=== PATIENT | male | born 1980 ===

== ENCOUNTER 2017-09-11 11:39 | Emergency (ER) | payer OTHER ==
--- NOTE | 2017-09-11 11:51 | ED PDOC ---
Arrival/HPI - General Historian: Patient <Hola Aguilar - Last Filed: 09/11/17 15:22> <Rosina Engle - Last Filed: 09/11/17 17:30> - General Chief Complaint: Rib Injury Time Seen by Provider: 09/11/17 11:49 - History of Present Illness Narrative History of Present Illness (Text): 09/11/17 11:51 37 y/o male, no significant pmh, nkda, c/o lt. sided rib pain x 2 days. Pt. stated that he has atraumatic pain on the lt. flank region for the past 2 days, sharp pain, nonradiating, no fever or chills, no coughing no pleuritic pain, no rash, no palpitation, no other medical or psychological complaints. (Hola Aguilar ) Past Medical History - Provider Review Nursing Documentation Reviewed: Yes - Psychiatric Hx Psychophysiologic Disorder: No Hx Substance Use: No <Hola Aguilar - Last Filed: 09/11/17 15:22> Family/Social History - Physician Review Nursing Documentation Reviewed: Yes Family/Social History: Unknown Family HX Smoking Status: Current Some Days Smoker Hx Alcohol Use: Yes Frequency of alcohol use: Socially Hx Substance Use: No <Hola Aguilar - Last Filed: 09/11/17 15:22> Allergies/Home Meds <Hola Aguilar - Last Filed: 09/11/17 15:22> <Rosina Engle - Last Filed: 09/11/17 17:30> Allergies/Adverse Reactions: Allergies No Known Allergies Allergy (Verified 09/11/17 11:44) Review of Systems - Review of Systems Constitutional: absent: Fatigue, Fevers Eyes: absent: Vision Changes ENT: absent: Hearing Changes Respiratory: absent: SOB, Cough, Sputum Cardiovascular: absent: Chest Pain Gastrointestinal: Other (+lt. flank pain). absent: Abdominal Pain, Nausea, Vomiting Musculoskeletal: absent: Arthralgias, Joint Swelling, Myalgias Skin: absent: Rash, Pruritis Neurological: absent: Headache, Dizziness Psychiatric: absent: Anxiety, Depression <Hola Aguilar - Last Filed: 09/11/17 15:22> Physical Exam Vital Signs Reviewed: Yes Temperature: Afebrile Blood Pressure: Normal Pulse: Regular Respiratory Rate: Normal Appearance: Positive for: Well-Appearing, Non-Toxic, Comfortable Pain Distress: Moderate Mental Status: Positive for: Alert and Oriented X 3 - Systems Exam Head: Present: Atraumatic, Normocephalic Pupils: Present: PERRL Extroacular Muscles: Present: EOMI Conjunctiva: Present: Normal Mouth: Present: Moist Mucous Membranes Neck: Present: Normal Range of Motion Respiratory/Chest: Present: Clear to Auscultation, Good Air Exchange. No: Respiratory Distress, Accessory Muscle Use Cardiovascular: Present: Regular Rate and Rhythm, Normal S1, S2. No: Murmurs Abdomen: No: Tenderness, Distention, Peritoneal Signs, Rebound, Guarding Back: Present: Normal Inspection, CVA Tenderness (lt. cva with no rash). No: Paraspinal Tenderness, Pain with Leg Raise, Decubitus Ulcer Upper Extremity: Present: Normal Inspection. No: Cyanosis, Edema Lower Extremity: Present: Normal Inspection. No: Edema Neurological: Present: GCS=15, Speech Normal, Motor Func Grossly Intact, Gait Normal, Memory Normal Skin: Present: Warm, Dry, Normal Color. No: Rashes Psychiatric: Present: Alert, Oriented x 3, Normal Insight, Normal Concentration <Hola Aguilar Q - Last Filed: 09/11/17 15:22> Vital Signs Temp Pulse Resp BP Pulse Ox 09/11/17 15:57 98.1 F 89 19 116/71 98 09/11/17 15:00 119/68 09/11/17 14:12 98.5 F 85 09/11/17 12:33 82 19 97 09/11/17 11:45 98.6 F 99 H 16 126/80 96 Medical Decision Making - Lab Interpretations I have reviewed the lab results: Yes - RAD Interpretation Major Gifts Officer: Radiologist - EKG Interpretation Interpreted by ED Physician: Yes Type: 12 lead EKG <Hola Aguilar - Last Filed: 09/11/17 15:22> <Rosina Engle - Last Filed: 09/11/17 17:30> ED Course and Treatment: 09/11/17 12:00 -labs/lipase/ua -CT abdomen and pelvis -CXR -IVF/toradol -observe and reassess 09/11/17 15:23 -EKG: NSR @ 86 BPM, no ST elevation or depression, no T wave inversion. -Chest xray: No active disease. -CT abdomen and pelvis: Diffuse fatty infiltration of the liver. Several globular areas of increased attenuation adjacent to the gallbladder fossa, likely areas of focal fatty sparing. However, correlation with ultrasound examination or magnetic resonance imaging is recommended on a nonemergent basis. Cholelithiasis without evidence of cholecystitis. No additional abnormality. -Labs show no acute findings except potassium 3.5 (potassium chloride 40meq po ordered). -UA show no UTI -Pt. feels much better. -Discharge home with motrin, flexeril, bed rest, follow up with your own pmd and orthopedic within 2 days, return to the ER for any new or worsening signs or symptoms. (Hola Aguilar) - Lab Interpretations Lab Results: 09/11/17 12:40 09/11/17 12:40 Lab Results 09/11/17 14:30: Urine Color Yellow, Urine Appearance Clear, Urine pH 6.0, Ur Specific [place] 1.025, Urine Protein Trace H, Urine Glucose (UA) Negative, Urine Ketones Negative, Urine Blood Negative, Urine Nitrate Negative, Urine Bilirubin Negative, Urine Urobilinogen 2.0 H, Ur Leukocyte Esterase Negative, Urine RBC Negative, Urine WBC Negative, Ur Epithelial Cells None 09/11/17 12:40: WBC 9.6, RBC 4.72, Hgb 13.2 L, Hct 38.8 L, MCV 82.2, MCH 28.0, MCHC 34.0, RDW 14.4, Plt Count 233, MPV 10.4, Gran % 53.2, Lymph % (Auto) 36.8 H , [place] % (Auto) 8.3 H, Eos % (Auto) 1.5, Baso % (Auto) 0.2, Gran # 5.11, Lymph # (Auto) 3.5 H, [place] # (Auto) 0.8 H, Eos # (Auto) 0.1, Baso # (Auto) 0.02 09/11/17 12:40: Sodium 141, Potassium 3.5 L, Chloride 103, Carbon Dioxide 26, Anion Gap 15, BUN 18, Creatinine 0.8, Est GFR ( Amer) > 60, Est GFR (Non- Af Amer) > 60, Random Glucose 169 H, Calcium 9.0, Magnesium 2.3 H, Total Bilirubin 0.5, AST 74 H, ALT 97 H, Alkaline Phosphatase 92, Lactate Dehydrogenase 646, Total Creatine Kinase 422 H, CK-MB (CK-2) 2.0, CK-MB (CK-2) % Cancelled, Troponin I < 0.01, Total Protein 7.9, Albumin 4.3, Globulin 3.5, Albumin/Globulin Ratio 1.2, Lipase 92 - RAD Interpretation Radiology Orders: 09/11/17 11:57 ABD & PELVIS W/O PO OR IV CONT [CT] Stat CHEST TWO VIEWS (PA/LAT) [RAD] Stat Chest xray: HISTORY: lt. flank pain COMPARISON: No prior. TECHNIQUE: Chest PA and lateral FINDINGS: LUNGS: No active pulmonary disease. PLEURA: No significant pleural effusion identified. No pneumothorax apparent. CARDIOVASCULAR: Normal. OSSEOUS STRUCTURES: No significant abnormalities. VISUALIZED UPPER ABDOMEN: Normal. OTHER FINDINGS: None. IMPRESSION: No active disease. CT Abdomen and Pelvis: LOWER THORAX: Unremarkable. LIVER: Normal size and contour. Diffusely diminished attenuation consistent with fatty infiltration. No biliary ductal dilatation. There are several small globular areas of increased attenuation adjacent to the gallbladder fossa, measuring 11 x 15 mm, and 12 x 15 mm, respectively. Likely focal fatty sparing. GALLBLADDER AND BILE DUCTS: Multiple noncalcified gallstones. No mural thickening or pericholecystic fluid. PANCREAS: Unremarkable. No gross lesion or ductal dilatation. SPLEEN: Unremarkable. ADRENALS: Unremarkable. No mass. KIDNEYS AND URETERS: Unremarkable. No hydronephrosis. No solid mass. VASCULATURE: Unremarkable. No aortic aneurysm. BOWEL: Unremarkable. No obstruction. No gross mural thickening. APPENDIX: Unremarkable. Normal appendix. PERITONEUM: Unremarkable. No free fluid. No free air. LYMPH NODES: Unremarkable. No enlarged lymph nodes. BLADDER: Unremarkable. REPRODUCTIVE: Normal prostate BONES: Recommended on a nonemergent basis No acute fracture. OTHER FINDINGS: None. IMPRESSION: Diffuse fatty infiltration of the liver. Several globular areas of increased attenuation adjacent to the gallbladder fossa, likely areas of focal fatty sparing. However, correlation with ultrasound examination or magnetic resonance imaging is recommended on a nonemergent basis. Cholelithiasis without evidence of cholecystitis. No additional abnormality. (Hola Aguilar) - EKG Interpretation EKG Interpretation (Text): 09/11/17 14:34 -EKG: NSR @ 86 BPM, no ST elevation or depression, no T wave inversion. (Hola Aguilar) - Medication Orders Current Medication Orders: Discontinued Medications Sodium Chloride (Sodium Chloride 0.9%) 1,000 mls @ 999 mls/hr IV .Q1H1M STA Stop: 09/11/17 12:57 Last Admin: 09/11/17 12:47 Dose: 999 mls/hr eMAR Start Stop Document 09/11/17 12:47 GMI (Rec: 09/11/17 12:47 GMI [place] [id number]) Intravenous Solution Start Date 09/11/17 Start Time 12:47 End Date 09/11/17 End time 15:00 Total Infusion Time 133 Ketorolac Tromethamine (Toradol) 30 mg IVP STAT STA Stop: 09/11/17 11:58 Last Admin: 09/11/17 12:46 Dose: 30 mg [facility] Pain Assessment Document 09/11/17 12:46 GMI (Rec: 09/11/17 12:47 GMI [place] [id number]) Pain Reassessment Is this a pain reassessment? Yes Sleep Is patient sleeping during reassessment? No Presence of Pain Presence of Pain Yes Pain Scale Used Pain Scale Used Numeric Location Left, Right or Bilateral Left Pain Location Body Site Back Description Description Sharp Intensity of Pain at present 7 Pain Behavior Facial Grimacing Aggravating Factors None Alleviating Factors/Management Medication Techniques Position Change Distraction Alleviating Factors Medication IVP Administration Document 09/11/17 12:46 GMI (Rec: 09/11/17 12:47 GMI [place] [id number]) Charges for Administration # of IVP Administrations 1 Re-Assess: KAREN Pain Assessment Document 09/11/17 13:46 GMI (Rec: 09/11/17 14:35 GMI [place] [id number]) Pain Reassessment Is this a pain reassessment? Yes Sleep Is patient sleeping during reassessment? No Presence of Pain Presence of Pain Yes Pain Scale Used Pain Scale Used Numeric Location Left, Right or Bilateral Left Pain Location Body Site Back Description Description Dull Intensity of Pain at present 2 Potassium Chloride (K-Dur 20 Meq Er Tab) 40 meq PO STAT STA Stop: 09/11/17 14:23 Last Admin: 09/11/17 15:07 Dose: 40 meq - PA / CARDIAC CATHETERIZATION TECHNOLOGIST / Resident Statement / has reviewed & agrees with the documentation as recorded. <Hola Aguilar - Last Filed: 09/11/17 15:22> - PA / CARDIAC CATHETERIZATION TECHNOLOGIST / Resident Statement TODD has reviewed & agrees with the documentation as recorded. <Rosina Engle - Last Filed: 09/11/17 17:30> Disposition/Present on Arrival - Present on Arrival Any Indicators Present on Arrival: No History of DVT/PE: No History of Uncontrolled Diabetes: No Urinary Catheter: No History of Decub. Ulcer: No History Surgical Site Infection Following: None - Disposition Have Diagnosis and Disposition been Completed?: Yes Disposition Time: 12:00 Patient Plan: Discharge <Hola Aguilar - Last Filed: 09/11/17 15:22> <Rosina Engle - Last Filed: 09/11/17 17:30> - Disposition Diagnosis: Fatty liver, Flank pain Disposition: HOME/ ROUTINE Condition: IMPROVED Additional Instructions: -Discharge home with motrin, flexeril, bed rest, follow up with your own pmd and orthopedic within 2 days, return to the ER for any new or worsening signs or symptoms. Prescriptions: Cyclobenzaprine [Cyclobenzaprine HCl] 10 mg PO TID PRN #21 tab PRN Reason: Other Ibuprofen [Motrin] 600 mg PO QID PRN #30 tab PRN Reason: Other Referrals: Rishabh Gan MD [Staff Provider] - Follow up with primary [facility] [place] [Outside] - Follow up with primary Jaiden Crowe MD [Medical Doctor] - Follow up with primary Forms: WORK NOTE
[2017-09-11] MEDS ORDERED: Sodium Chloride 0.9% 1,000 ML IV STA (11:57)
[2017-09-11 12:44] VITALS: RESP 19
[2017-09-11 12:57] LABS: BASO # 0.02 K/mm3 (0.0-2.0); BASO % 0.2 % (0.0-3.0); EOS # 0.1 (0.0-0.7); EOS % 1.5 % (1.5-5.0); GRAN # 5.11 (1.4-6.5); GRAN % 53.2 % (50.0-68.0); HEMOGLOBIN 13.2 g/dL (14.0-18.0); LYMPH # 3.5 (1.2-3.4); LYMPH % 36.8 % (22.0-35.0); MEAN CELL VOLUME 82.2 fl (80.0-105.0); MEAN PLATELET VOLUME 10.4 fl (7.0-11.0); MONO # 0.8 (0.1-0.6); MONO % 8.3 % (1.0-6.0); RBC 4.72 10^6/uL (3.5-6.1); RED CELL DISTRIBUTION WIDTH 14.4 % (11.5-14.5); WHITE BLOOD COUNT 9.6 10^3/ul (4.5-11.0)
[2017-09-11 13:03] LABS: ALB/GLOB RATIO 1.2 (1.1-1.8); ALBUMIN 4.3 g/dL (3.0-4.8); ALT/SGPT 97 U/L (7-56); AST/SGOT 74 U/L (17-59); BLOOD UREA NITROGEN 18 mg/dL (7-21); GFR AFRICAN-AMERICAN > 60; GFR NON-AFRICAN AMERICAN > 60; LIPASE 92 U/L (23-300)
[2017-09-11 13:14] LABS: TROPONIN I < 0.01 ng/mL
--- NOTE | 2017-09-11 14:05 | CT ---
PROCEDURE: CT Abdomen and Pelvis without intravenous contrast HISTORY: lt. flank pain COMPARISON: None. TECHNIQUE: Without contrast.. Contrast Dose: 0 Radiation dose: Total exam DLP = Total exam DLP = 1057.46 mGy-cm. This CT exam was performed using one or more of the following dose reduction techniques: Automated exposure control, adjustment of the mA and/or kV according to patient size, and/or use of iterative reconstruction technique. FINDINGS: LOWER THORAX: Unremarkable. LIVER: Normal size and contour. Diffusely diminished attenuation consistent with fatty infiltration. No biliary ductal dilatation. There are several small globular areas of increased attenuation adjacent to the gallbladder fossa, measuring 11 x 15 mm, and 12 x 15 mm, respectively. Likely focal fatty sparing. GALLBLADDER AND BILE DUCTS: Multiple noncalcified gallstones. No mural thickening or pericholecystic fluid. PANCREAS: Unremarkable. No gross lesion or ductal dilatation. SPLEEN: Unremarkable. ADRENALS: Unremarkable. No mass. KIDNEYS AND URETERS: Unremarkable. No hydronephrosis. No solid mass. VASCULATURE: Unremarkable. No aortic aneurysm. BOWEL: Unremarkable. No obstruction. No gross mural thickening. APPENDIX: Unremarkable. Normal appendix. PERITONEUM: Unremarkable. No free fluid. No free air. LYMPH NODES: Unremarkable. No enlarged lymph nodes. BLADDER: Unremarkable. REPRODUCTIVE: Normal prostate BONES: Recommended on a nonemergent basis No acute fracture. OTHER FINDINGS: None. IMPRESSION: Diffuse fatty infiltration of the liver. Several globular areas of increased attenuation adjacent to the gallbladder fossa, likely areas of focal fatty sparing. However, correlation with ultrasound examination or magnetic resonance imaging is recommended on a nonemergent basis. Cholelithiasis without evidence of cholecystitis. No additional abnormality.
[2017-09-11] MEDS ORDERED: Potassium Chloride 20 mEq ER Tab PO STA (14:22)
--- NOTE | 2017-09-11 14:31 | RAD ---
HISTORY: lt. flank pain COMPARISON: No prior. TECHNIQUE: Chest PA and lateral FINDINGS: LUNGS: No active pulmonary disease. PLEURA: No significant pleural effusion identified. No pneumothorax apparent. CARDIOVASCULAR: Normal. OSSEOUS STRUCTURES: No significant abnormalities. VISUALIZED UPPER ABDOMEN: Normal. OTHER FINDINGS: None. IMPRESSION: No active disease.
[2017-09-11 14:45] LABS: URINE BILIRUBIN NEGATIVE (NEGATIVE); URINE BLOOD NEGATIVE (NEGATIVE); URINE GLUCOSE (UA) NEGATIVE (NEGATIVE); URINE LEUKOCYTE ESTERASE NEGATIVE Leu/uL (NEGATIVE); URINE PROTEIN TRACE mg/dL (<30 mg/dL)
[2017-09-11 14:46] LABS: URINE APPEARANCE CLEAR (CLEAR); URINE COLOR YELLOW (YELLOW)
[2017-09-11 14:52] LABS: URINE RBC NEGATIVE /hpf (0-2); URINE WBC NEGATIVE /hpf (0-6)
[2017-09-11 15:58] VITALS: BP 116/71; PULSE 89; TEMP 98.1; O2SAT 98
--- NOTE | 2017-09-12 08:51 | CARD ---
APPROVED REPORT EKG Measurement Heart [id number] <Conclusion> Normal sinus rhythm Q in lll Normal ECG
== END 2017-09-11 15:59 | disposition home or self-care (01) ==
LOC: ED 11:39
DX: K76.0 Fatty (change of) liver, not elsewhere classified (principal); R10.9 Unspecified abdominal pain; F17.200 Nicotine dependence, unspecified, uncomplicated
CPT/HCPCS: 71046; 74176; 80053; 81001; 82550; 82553; 83615; 83690; 83735; 84484; 85025; 93005; 96361; 96374; 99284; J1885; J7040